=== PATIENT | female | born 1950 | race Caucasian/White ===

== ENCOUNTER 2017-10-23 06:10 | Inpatient (IN) | payer MEDICARE, BC ==
[2017-10-23] MEDS ORDERED: PROPOFOL 200 MG INJ (07:00)
[2017-10-23] MEDS ORDERED: LIDOCAINE 2% (SDV) 5 ML INJ (07:00)
[2017-10-23] MEDS ORDERED: HEPARIN 1000 UNITS/ML 10 ML INJ ×2 (07:20→08:49)
[2017-10-23] MEDS ORDERED: LIDOCAINE 1% (MPF) 30 ML INJ (07:20)
[2017-10-23] MEDS ORDERED: THROMBIN 5000 UNIT VIAL (07:20)
[2017-10-23] MEDS ORDERED: PROPOFOL 20 ML (07:41)
[2017-10-23] MEDS ORDERED: ROCURONIUM 50 MG INJ (07:43)
[2017-10-23] MEDS: THROMBIN 5000 UNIT VIAL TOP (07:45)
[2017-10-23] MEDS: HEPARIN 1000 UNITS/ML 10 ML INJ IRR (07:45)
[2017-10-23] MEDS: GELATIN SIZE 100 SPONGE TOP (07:45)
[2017-10-23] MEDS: MIDAZOLAM 1 MG/ML 2 ML INJ IV (07:55)
[2017-10-23] MEDS ORDERED: DEXAMETHASONE 4 MG/ML 1 ML INJ (08:53)
[2017-10-23] MEDS ORDERED: HYDROCORTISONE 100 MG INJ (08:54)
[2017-10-23] MEDS ORDERED: ONDANSETRON 4 MG INJ ×2 (09:33→09:59)
[2017-10-23] MEDS ORDERED: SUGAMMADEX SODIUM 200 MG/2 ML VIAL IV (09:38)
[2017-10-23] MEDS ORDERED: LABETALOL HCL 20MG INJ (09:41)
[2017-10-23] MEDS ORDERED: FENTAnyl 50 MCG/ML VIAL IV ×2 (10:00)
[2017-10-23] MEDS ORDERED: MIDAZOLAM 1 MG/ML 2 ML INJ IV (10:00)
[2017-10-23] MEDS ORDERED: ALBUTEROL 0.083% (NEB) 2.5 MG/3 ML AMP HHN (10:00)
[2017-10-23] MEDS ORDERED: EPHEDrine SULFATE 50 MG/5 ML SYG IV (10:00)
[2017-10-23] MEDS ORDERED: OXYCODONE/ACETAMINOPHEN (5/325) TAB PO ×2 (10:00)
[2017-10-23] MEDS ORDERED: MEPERIDINE 25 MG INJ IV (10:00)
[2017-10-23] MEDS ORDERED: LABETALOL HCL 20MG INJ IV (10:00)
[2017-10-23] MEDS ORDERED: hydrALAzine 20 MG INJ IV (10:00)
[2017-10-23] MEDS ORDERED: HYDROmorphONE 1 MG/5 ML IV SYRINGE IV (10:00)
[2017-10-23] MEDS ORDERED: ASPIRIN 81 MG TAB PO (10:00)
[2017-10-23] MEDS: ONDANSETRON 4 MG INJ IV ×5 (10:13→23:28)
[2017-10-23] MEDS ORDERED: METOCLOPRAMIDE 10 MG INJ (10:18)
[2017-10-23] MEDS: HYDROmorphONE 1 MG/5 ML IV SYRINGE IV ×2 (10:25→10:42)
[2017-10-23] MEDS: METOCLOPRAMIDE 10 MG INJ IV (10:28)
[2017-10-23] MEDS ORDERED: CEFTRIAXONE 1 GM/50 ML (PMX) 50 ML IVPB (11:00)
[2017-10-23] MEDS: ASPIRIN 81 MG TAB PO (11:00)
[2017-10-23] MEDS: niCARdipine 50 MG in SOD CHLORIDE 0.9% 480 ML IV (11:23)
[2017-10-23] MEDS: PROMETHAZINE 25 MG SUPP PR (11:26)
[2017-10-23] MEDS: DIPHENHYDRAMINE 50 MG INJ IV (12:06)
[2017-10-23] MEDS: FENTAnyl 50 MCG/ML VIAL IV (12:49)
[2017-10-23] MEDS: MAGNESIUM HYDROXIDE 30ML CUP PO (14:30)
[2017-10-23] MEDS: ALBUTEROL HFA 8 GM INHALER INH ×2 (14:30→18:30)
[2017-10-23] MEDS ORDERED: HYDROCODONE/APAP (5/325) TAB PO (14:30)
[2017-10-23] MEDS ORDERED: BISACODYL (EC) 5 MG TAB PO (14:30)
[2017-10-23] MEDS ORDERED: NACL 0.9% 3 ML SYG IV (15:30)
[2017-10-23] MEDS ORDERED: GLUCOSE GEL 15 GRAM TUBE BUCCAL (15:30)
[2017-10-23] MEDS: LINAGLIPTIN 5 MG TABLET PO (15:30)
[2017-10-23] MEDS ORDERED: GLUCAGON 1 MG INJ IM (15:30)
[2017-10-23] MEDS ORDERED: GLUCOSE GEL 15 GRAM TUBE PO ×2 (15:30)
[2017-10-23] MEDS ORDERED: FLUTICASONE 0.05% 16 GM NAS SPRAY NASAL (15:30)
[2017-10-23] MEDS ORDERED: DEXTROSE 50% 50 ML SYRINGE IV ×2 (15:30)
[2017-10-23] MEDS: HYDROCODONE/APAP (5/325) TAB PO ×2 (16:31→23:28)
[2017-10-23] MEDS: REPAGLINIDE 1 MG TAB PO (17:05)
[2017-10-23] MEDS: predniSONE 1 MG TAB PO (17:05)
[2017-10-23] MEDS: INSULIN ASPART [NOVOLOG] 3 ML PEN SC ×3 (18:41→21:00)
[2017-10-23] MEDS: ACCU-CHEK XX (19:35)
[2017-10-23 19:45] LABS: ANION GAP 17 (8-16); BLOOD UREA NITROGEN 16 mg/dl (7-20); CARBON DIOXIDE 22 mmol/L (21-31); CHLORIDE 103 mmol/L (97-110); CREATININE 0.73 mg/dl (0.44-1.00); POTASSIUM 4.2 mmol/L (3.5-5.1); SODIUM 138 mmol/L (135-144)
[2017-10-23 19:50] LABS: GLUCOSE 421 mg/dl (70-220)
[2017-10-23] MEDS: ATORVASTATIN 40 MG TAB PO (20:48)
[2017-10-23] MEDS: METHIMAZOLE 5 MG TAB PO (20:48)
[2017-10-23] MEDS: clonAZEPAM 0.5 MG TAB PO (20:49)
[2017-10-23] MEDS: METOPROLOL 25 MG TAB PO (20:49)
[2017-10-23] MEDS ORDERED: ATORVASTATIN 40 MG TAB PO (21:00)
[2017-10-23] MEDS ORDERED: clonAZEPAM 0.5 MG TAB PO (21:00)
[2017-10-23] MEDS: QUETIAPINE 25 MG TAB PO (21:12)
[2017-10-23] MEDS: INSULIN GLARGINE [LANTus] (100 UNITS/ML) SYG SC (21:46)
[2017-10-23] MEDS: ONDANSETRON 4 MG TAB PO (22:39)
[2017-10-23] MEDS: ACETAMINOPHEN 325 MG TAB PO (22:39)
[2017-10-24] MEDS: ALBUTEROL HFA 8 GM INHALER INH ×7 (00:18→22:35)
[2017-10-24] MEDS: ACCU-CHEK XX ×4 (02:33→19:42)
[2017-10-24] MEDS: ACETAMINOPHEN 325 MG TAB PO (02:51)
[2017-10-24] MEDS: HYDROmorphONE 1 MG/ML SYG IV ×2 (03:16→21:34)
[2017-10-24] MEDS: HYDROCODONE/APAP (5/325) TAB PO ×3 (05:05→21:49)
[2017-10-24 05:13] LABS: ADD MAN DIFF? NO
[2017-10-24 05:23] LABS: BASOPHILS % 0.1 % (0.0-2.0); HEMATOCRIT 30.6 % (37.0-47.0); HEMOGLOBIN 9.9 g/dl (12.0-16.0); LYMPHOCYTES # 0.6 10^3/ul (0.8-2.9); LYMPHOCYTES % 3.4 % (15.0-51.0); MEAN CORPUSCULAR HEMOGLOBIN 28.9 pg (29.0-33.0); MEAN CORPUSCULAR HGB CONC 32.4 g/dl (32.0-37.0); MEAN CORPUSCULAR VOLUME 89.5 fl (82.0-101.0); MEAN PLATELET VOLUME 9.2 fl (7.4-10.4); MONOCYTE # 0.9 10^3/ul (0.3-0.9); MONOCYTES % 5.2 % (0.0-11.0); NEUTROPHIL # 16.3 10^3/ul (1.6-7.5); NEUTROPHILS % 90.5 % (39.0-77.0); PLATELET COUNT 316 10^3/UL (140-415); RED BLOOD COUNT 3.42 10^6/ul (4.20-5.40); RED CELL DISTRIBUTION WIDTH 14.8 % (11.5-14.5)
[2017-10-24 05:33] LABS: HEMOGLOBIN A1C 7.2 % (0-5.9)
[2017-10-24 05:41] LABS: ALANINE AMINOTRANSFERASE 23 IU/L (13-69); ALBUMIN 3.6 g/dl (3.3-4.9); ALBUMIN/GLOBULIN RATIO 1.24; ALKALINE PHOSPHATASE 91 IU/L (42-121); ANION GAP 14 (8-16); ASPARTATE AMINO TRANSFERASE 17 IU/L (15-46); BILIRUBIN,INDIRECT 0.3 mg/dl (0-1.1); BILIRUBIN,TOTAL 0.3 mg/dl (0.2-1.3); BLOOD UREA NITROGEN 18 mg/dl (7-20); CARBON DIOXIDE 25 mmol/L (21-31); CHLORIDE 105 mmol/L (97-110); CREATININE 0.67 mg/dl (0.44-1.00); GLUCOSE 214 mg/dl (70-220); SODIUM 140 mmol/L (135-144); TOTAL PROTEIN 6.5 g/dl (6.1-8.1)
[2017-10-24] MEDS: REPAGLINIDE 1 MG TAB PO ×3 (06:59→17:52)
[2017-10-24 07:06] LABS: MAGNESIUM 1.8 mg/dl (1.7-2.5)
[2017-10-24 07:24] LABS: FREE THYROXINE INDEX (Calc) 3.76 ug/ml (0.65-3.89); T3 UPTAKE 38.4 % (23.5-40.5); T4 (THYROXINE) 9.8 ug/dl (5.5-11.0)
[2017-10-24 07:49] LABS: THYROID STIMULATING HORMONE < 0.015 MIU/L (0.465-4.680)
[2017-10-24] MEDS: INSULIN ASPART [NOVOLOG] 3 ML PEN SC ×4 (08:27→21:35)
[2017-10-24] MEDS: FAMOTIDINE 20 MG TAB PO (09:19)
[2017-10-24] MEDS: CHOLECALCIFEROL 1,000 UNIT TAB PO (09:19)
[2017-10-24] MEDS: METOPROLOL 25 MG TAB PO ×2 (09:19→21:31)
[2017-10-24] MEDS: LINAGLIPTIN 5 MG TABLET PO (09:19)
[2017-10-24] MEDS: ASPIRIN 81 MG TAB PO (09:20)
[2017-10-24] MEDS: DILTIAZEM (CD) 120 MG CAP PO (09:20)
[2017-10-24] MEDS: predniSONE 1 MG TAB PO ×2 (09:20→17:51)
[2017-10-24] MEDS: MAGNESIUM HYDROXIDE 30ML CUP PO (12:37)
[2017-10-24] MEDS ORDERED: RIVAROXABAN 20 MG TABLET PO (17:35)
[2017-10-24] MEDS: ATORVASTATIN 40 MG TAB PO (21:26)
[2017-10-24] MEDS: QUETIAPINE 25 MG TAB PO (21:27)
[2017-10-24] MEDS: clonAZEPAM 0.5 MG TAB PO (21:32)
[2017-10-24] MEDS: ONDANSETRON 4 MG INJ IV (21:34)
[2017-10-24] MEDS: ONDANSETRON 4 MG TAB PO (21:49)
[2017-10-25] MEDS: ALBUTEROL HFA 8 GM INHALER INH ×6 (02:30→22:30)
[2017-10-25] MEDS: ACCU-CHEK XX ×4 (02:40→17:28)
[2017-10-25] MEDS: HYDROmorphONE 1 MG/ML SYG IV ×3 (03:00→22:40)
[2017-10-25 05:11] LABS: ADD MAN DIFF? NO
[2017-10-25 05:18] LABS: ABNORMAL IP MESSAGE 1; BASOPHILS % 0.1 % (0.0-2.0); HEMATOCRIT 29.2 % (37.0-47.0); HEMOGLOBIN 9.3 g/dl (12.0-16.0); LYMPHOCYTES # 1.4 10^3/ul (0.8-2.9); LYMPHOCYTES % 7.5 % (15.0-51.0); MEAN CORPUSCULAR HEMOGLOBIN 28.7 pg (29.0-33.0); MEAN CORPUSCULAR HGB CONC 31.8 g/dl (32.0-37.0); MEAN CORPUSCULAR VOLUME 90.1 fl (82.0-101.0); MEAN PLATELET VOLUME 9.3 fl (7.4-10.4); MONOCYTE # 1.8 10^3/ul (0.3-0.9); MONOCYTES % 9.4 % (0.0-11.0); NEUTROPHIL # 15.4 10^3/ul (1.6-7.5); NEUTROPHILS % 82.5 % (39.0-77.0); PLATELET COUNT 333 10^3/UL (140-415); RED BLOOD COUNT 3.24 10^6/ul (4.20-5.40); RED CELL DISTRIBUTION WIDTH 15.4 % (11.5-14.5)
[2017-10-25 05:18] LABS: WHITE BLOOD COUNT 18.7 10^3/ul (4.8-10.8)
[2017-10-25 05:25] LABS: POSITIVE DIFF @See below
[2017-10-25 06:17] LABS: ALANINE AMINOTRANSFERASE 19 IU/L (13-69); ALBUMIN 3.7 g/dl (3.3-4.9); ALBUMIN/GLOBULIN RATIO 1.19; ALKALINE PHOSPHATASE 79 IU/L (42-121); ANION GAP 13 (8-16); ASPARTATE AMINO TRANSFERASE 23 IU/L (15-46); BILIRUBIN,INDIRECT 0.4 mg/dl (0-1.1); BILIRUBIN,TOTAL 0.4 mg/dl (0.2-1.3); BLOOD UREA NITROGEN 19 mg/dl (7-20); CALCIUM 9.3 mg/dl (8.4-10.2); CARBON DIOXIDE 30 mmol/L (21-31); CHLORIDE 104 mmol/L (97-110); CREATININE 0.65 mg/dl (0.44-1.00); GLUCOSE 131 mg/dl (70-220); POTASSIUM 4.5 mmol/L (3.5-5.1); SODIUM 142 mmol/L (135-144); TOTAL PROTEIN 6.8 g/dl (6.1-8.1)
[2017-10-25] MEDS: INSULIN ASPART [NOVOLOG] 3 ML PEN SC ×4 (07:35→21:00)
[2017-10-25] MEDS: DOCUSATE SODIUM 100 MG CAP PO (08:19)
[2017-10-25] MEDS: ASPIRIN 81 MG TAB PO (08:24)
[2017-10-25] MEDS: FAMOTIDINE 20 MG TAB PO (08:25)
[2017-10-25] MEDS: CHOLECALCIFEROL 1,000 UNIT TAB PO (08:25)
[2017-10-25] MEDS: LINAGLIPTIN 5 MG TABLET PO (08:25)
[2017-10-25] MEDS: DILTIAZEM (CD) 120 MG CAP PO (08:25)
[2017-10-25] MEDS: METOPROLOL 25 MG TAB PO ×2 (08:26→21:02)
[2017-10-25] MEDS: REPAGLINIDE 1 MG TAB PO ×3 (08:26→17:27)
[2017-10-25] MEDS: INSULIN GLARGINE [LANTus] (100 UNITS/ML) SYG SC (08:28)
[2017-10-25] MEDS: METHIMAZOLE 5 MG TAB PO (08:33)
[2017-10-25] MEDS: predniSONE 1 MG TAB PO ×2 (08:33→17:28)
[2017-10-25] MEDS: HYDROCODONE/APAP (5/325) TAB PO (10:20)
[2017-10-25] MEDS: FUROSEMIDE 20 MG INJ IV (12:00)
[2017-10-25] MEDS ORDERED: RIVAROXABAN 20 MG TABLET PO (17:35)
[2017-10-25] MEDS: ONDANSETRON 4 MG INJ IV (21:01)
[2017-10-25] MEDS: ATORVASTATIN 40 MG TAB PO (21:02)
[2017-10-25] MEDS: QUETIAPINE 25 MG TAB PO (21:05)
[2017-10-25] MEDS: clonAZEPAM 0.5 MG TAB PO (21:26)
[2017-10-26] MEDS: ACCU-CHEK XX ×3 (02:00→13:50)
[2017-10-26] MEDS: ALBUTEROL HFA 8 GM INHALER INH ×4 (02:08→14:19)
[2017-10-26] MEDS: METHIMAZOLE 5 MG TAB PO (06:31)
[2017-10-26] MEDS: HYDROmorphONE 1 MG/ML SYG IV (06:40)
[2017-10-26] MEDS: INSULIN ASPART [NOVOLOG] 3 ML PEN SC ×2 (07:47→11:50)
[2017-10-26] MEDS: REPAGLINIDE 1 MG TAB PO ×2 (07:48→12:10)
[2017-10-26] MEDS: INSULIN GLARGINE [LANTus] (100 UNITS/ML) SYG SC (08:43)
[2017-10-26] MEDS: predniSONE 1 MG TAB PO (08:45)
[2017-10-26] MEDS: METOPROLOL 25 MG TAB PO (08:45)
[2017-10-26] MEDS: LINAGLIPTIN 5 MG TABLET PO (08:45)
[2017-10-26] MEDS: ASPIRIN 81 MG TAB PO (08:45)
[2017-10-26] MEDS: FAMOTIDINE 20 MG TAB PO (08:46)
[2017-10-26] MEDS: DOCUSATE SODIUM 100 MG CAP PO (08:46)
[2017-10-26] MEDS: DILTIAZEM (CD) 120 MG CAP PO (08:46)
[2017-10-26] MEDS: CHOLECALCIFEROL 1,000 UNIT TAB PO (08:46)
[2017-10-26] MEDS: HYDROCODONE/APAP (5/325) TAB PO (16:11)
[2017-10-30] MEDS ORDERED: RIVAROXABAN 20 MG TABLET PO (17:35)
== END 2017-10-26 17:44 | disposition home or self-care (01) | DRG 39 ==
LOC: REC 06:10 → TEL 10-25 20:00 → ICU 12:49 → TEL 10-25 23:50
PROVIDERS: Surgery Vascular Surgery
PROC: 03CL0Z6 (ICD-10-PCS; principal; 2017-10-23 08:00)
DX: I65.22 Occlusion and stenosis of left carotid artery (principal); E11.9 Type 2 diabetes mellitus without complications; I10 Essential (primary) hypertension; G43.909 Migraine, unspecified, not intractable, without status migrainosus; E78.5 Hyperlipidemia, unspecified; M79.7 Fibromyalgia; G89.4 Chronic pain syndrome; E05.90 Thyrotoxicosis, unspecified without thyrotoxic crisis or storm; K21.9 Gastro-esophageal reflux disease without esophagitis; M16.0 Bilateral primary osteoarthritis of hip; I25.10 Atherosclerotic heart disease of native coronary artery without angina pectoris; Z79.52 Long term (current) use of systemic steroids; Z86.73 Personal history of transient ischemic attack (TIA), and cerebral infarction without residual deficits
CPT/HCPCS: 71045; 80048; 80053; 82962; 83036; 83735; 84436; 84443; 84479; 85025; 87081; 87086; 88307

== ENCOUNTER 2017-11-04 16:12 | Inpatient (IN) | payer MEDICARE, BC ==
[2017-11-04 17:24] LABS: ADD MAN DIFF? NO
[2017-11-04 17:27] LABS: BASOPHIL # 0.1 10^3/ul (0.0-0.1); BASOPHILS % 0.4 % (0.0-2.0); EOSINOPHILS # 0.3 10^3/ul (0.0-0.5); EOSINOPHILS % 2.3 % (0.0-7.0); HEMOGLOBIN 10.5 g/dl (12.0-16.0); LYMPHOCYTES # 1.8 10^3/ul (0.8-2.9); LYMPHOCYTES % 12.8 % (15.0-51.0); MEAN CORPUSCULAR HEMOGLOBIN 29.7 pg (29.0-33.0); MEAN CORPUSCULAR HGB CONC 31.8 g/dl (32.0-37.0); MEAN CORPUSCULAR VOLUME 93.2 fl (82.0-101.0); MEAN PLATELET VOLUME 8.5 fl (7.4-10.4); MONOCYTE # 1.1 10^3/ul (0.3-0.9); MONOCYTES % 7.7 % (0.0-11.0); NEUTROPHIL # 10.6 10^3/ul (1.6-7.5); PLATELET COUNT 447 10^3/UL (140-415); RED BLOOD COUNT 3.54 10^6/ul (4.20-5.40); RED CELL DISTRIBUTION WIDTH 15.9 % (11.5-14.5)
[2017-11-04] MEDS ORDERED: FLUTICASONE 0.05% 16 GM NAS SPRAY NASAL (17:30)
[2017-11-04] MEDS: ALBUTEROL HFA 8 GM INHALER INH ×2 (17:30→20:20)
[2017-11-04] MEDS: MAGNESIUM HYDROXIDE 30ML CUP PO (17:30)
[2017-11-04] MEDS ORDERED: ACETAMINOPHEN 325 MG TAB PO (17:30)
[2017-11-04 17:44] LABS: ANION GAP 12 (8-16); BLOOD UREA NITROGEN 10 mg/dl (7-20); CALCIUM 9.3 mg/dl (8.4-10.2); CARBON DIOXIDE 27 mmol/L (21-31); CHLORIDE 102 mmol/L (97-110); CREATININE 0.88 mg/dl (0.44-1.00); GLUCOSE 228 mg/dl (70-220); POTASSIUM 4.3 mmol/L (3.5-5.1); SODIUM 137 mmol/L (135-144)
[2017-11-04] MEDS ORDERED: GLUCAGON 1 MG INJ IM (18:00)
[2017-11-04] MEDS ORDERED: DEXTROSE 50% 50 ML SYRINGE IV ×2 (18:00)
[2017-11-04] MEDS ORDERED: GLUCOSE GEL 15 GRAM TUBE BUCCAL (18:00)
[2017-11-04] MEDS ORDERED: GLUCOSE GEL 15 GRAM TUBE PO ×2 (18:00)
[2017-11-04] MEDS: HYDROCODONE/APAP (5/325) TAB PO ×2 (18:47→22:58)
[2017-11-04] MEDS: METHIMAZOLE 5 MG TAB PO (18:51)
[2017-11-04] MEDS: ONDANSETRON 4 MG INJ IV (18:51)
[2017-11-04] MEDS: DILTIAZEM (CD) 120 MG CAP PO (20:18)
[2017-11-04] MEDS: QUETIAPINE 25 MG TAB PO (20:18)
[2017-11-04] MEDS: clonAZEPAM 0.5 MG TAB PO (20:19)
[2017-11-04] MEDS: METOPROLOL 25 MG TAB PO (20:19)
[2017-11-04] MEDS: CEPASTAT LOZENGE MT (22:58)
[2017-11-05] MEDS: ALBUTEROL HFA 8 GM INHALER INH ×6 (01:30→21:30)
[2017-11-05 05:01] LABS: ADD MAN DIFF? NO
[2017-11-05 05:22] LABS: WHITE BLOOD COUNT 11.2 10^3/ul (4.8-10.8)
[2017-11-05 05:22] LABS: BASOPHIL # 0.1 10^3/ul (0.0-0.1); BASOPHILS % 0.4 % (0.0-2.0); EOSINOPHILS # 0.4 10^3/ul (0.0-0.5); EOSINOPHILS % 3.6 % (0.0-7.0); HEMOGLOBIN 9.3 g/dl (12.0-16.0); LYMPHOCYTES # 2.2 10^3/ul (0.8-2.9); LYMPHOCYTES % 19.7 % (15.0-51.0); MEAN CORPUSCULAR HEMOGLOBIN 29.5 pg (29.0-33.0); MEAN CORPUSCULAR HGB CONC 32.1 g/dl (32.0-37.0); MEAN CORPUSCULAR VOLUME 92.1 fl (82.0-101.0); MEAN PLATELET VOLUME 9.4 fl (7.4-10.4); MONOCYTE # 1.1 10^3/ul (0.3-0.9); MONOCYTES % 9.3 % (0.0-11.0); NEUTROPHIL # 7.5 10^3/ul (1.6-7.5); NEUTROPHILS % 66.4 % (39.0-77.0); PLATELET COUNT 306 10^3/UL (140-415); RED BLOOD COUNT 3.15 10^6/ul (4.20-5.40)
[2017-11-05 06:07] LABS: ALANINE AMINOTRANSFERASE 11 IU/L (13-69); ALBUMIN 3.1 g/dl (3.3-4.9); ALKALINE PHOSPHATASE 90 IU/L (42-121); ANION GAP 8 (8-16); ASPARTATE AMINO TRANSFERASE 14 IU/L (15-46); BILIRUBIN,INDIRECT 0.4 mg/dl (0-1.1); BILIRUBIN,TOTAL 0.4 mg/dl (0.2-1.3); BLOOD UREA NITROGEN 12 mg/dl (7-20); CARBON DIOXIDE 28 mmol/L (21-31); CHLORIDE 106 mmol/L (97-110); GLUCOSE 112 mg/dl (70-220); POTASSIUM 4.1 mmol/L (3.5-5.1); SODIUM 138 mmol/L (135-144); TOTAL PROTEIN 6.2 g/dl (6.1-8.1)
[2017-11-05 07:00] LABS: THYROID STIMULATING HORMONE 0.187 MIU/L (0.465-4.680)
[2017-11-05] MEDS: METHIMAZOLE 5 MG TAB PO ×2 (08:44→17:20)
[2017-11-05] MEDS: METOPROLOL 25 MG TAB PO ×2 (08:44→20:51)
[2017-11-05] MEDS: CHOLECALCIFEROL 1,000 UNIT TAB PO (08:45)
[2017-11-05] MEDS: HYDROCODONE/APAP (5/325) TAB PO ×3 (08:45→20:20)
[2017-11-05] MEDS: LINAGLIPTIN 5 MG TABLET PO (08:45)
[2017-11-05] MEDS ORDERED: DILTIAZEM (CD) 120 MG CAP PO (09:00)
[2017-11-05] MEDS: ONDANSETRON 4 MG INJ IV (13:22)
[2017-11-05] MEDS: MAGNESIUM HYDROXIDE 30ML CUP PO (17:20)
[2017-11-05] MEDS: QUETIAPINE 25 MG TAB PO (20:48)
[2017-11-05] MEDS: clonAZEPAM 0.5 MG TAB PO (20:51)
[2017-11-05] MEDS: DILTIAZEM (CD) 120 MG CAP PO (20:51)
[2017-11-06] MEDS: ALBUTEROL HFA 8 GM INHALER INH ×4 (01:30→12:30)
[2017-11-06] MEDS: HYDROCODONE/APAP (5/325) TAB PO (06:52)
[2017-11-06] MEDS: METHIMAZOLE 5 MG TAB PO (08:14)
[2017-11-06] MEDS: CHOLECALCIFEROL 1,000 UNIT TAB PO (08:15)
[2017-11-06] MEDS: LINAGLIPTIN 5 MG TABLET PO (08:15)
[2017-11-06] MEDS: METOPROLOL 25 MG TAB PO (08:15)
== END 2017-11-06 14:23 | disposition home or self-care (01) | DRG 921 ==
LOC: MS1 16:12
DX: I97.638 Postprocedural hematoma of a circulatory system organ or structure following other circulatory system procedure (principal); E11.65 Type 2 diabetes mellitus with hyperglycemia; E78.5 Hyperlipidemia, unspecified; I10 Essential (primary) hypertension; E03.9 Hypothyroidism, unspecified; K21.9 Gastro-esophageal reflux disease without esophagitis; G89.29 Other chronic pain; M79.7 Fibromyalgia; Z79.52 Long term (current) use of systemic steroids; I25.10 Atherosclerotic heart disease of native coronary artery without angina pectoris; M16.12 Unilateral primary osteoarthritis, left hip; Y83.8 Other surgical procedures as the cause of abnormal reaction of the patient, or of later complication, without mention of misadventure at the time of the procedure
CPT/HCPCS: 71046; 80048; 80053; 82962; 84443; 85025